=== PATIENT | male | born 1970 | race American Indian/Alaskan Native ===

== ENCOUNTER 2017-12-18 11:41 | Emergency (ER) | payer OTHER ==
[2017-12-18] MEDS ORDERED: VASELINE LIP THERAPY TP PRN (11:46)
[2017-12-18] MEDS ORDERED: ARTIFICIAL TEARS OPHTH OINT OU PRN (11:46)
[2017-12-18] MEDS ORDERED: ASPIRIN PO ONE (11:48)
[2017-12-18] MEDS ORDERED: HEPARIN 10,000 UNITS/10 ML IV ONE (11:51)
[2017-12-18] MEDS ORDERED: ASPIRIN PR ONE ×2 (11:59→12:11)
[2017-12-18 12:00] LABS: Hematocrit 45.9 % (35.5-45.6); Hemoglobin 15.1 gm/dl (11.8-15.2); Mean Corpuscular HGB Conc 33 % (32-34); Mean Corpuscular Hemoglobin 29 pg (28-32); Mean Corpuscular Volume 86 fl (84-94); Platelet Count 202 K/mm3 (140-440); Red Blood Count 5.31 M/mm3 (3.65-5.03); Red Cell Distribution Width 14.5 % (13.2-15.2)
[2017-12-18] MEDS ORDERED: NACL 0.9% 500 ML IV SCH (12:00)
[2017-12-18 12:12] LABS: INR 0.94 (0.87-1.13)
[2017-12-18 12:15] LABS: BUN/Creatinine Ratio 9; Blood Urea Nitrogen 13 mg/dL (9-20); Calcium 8.9 mg/dL (8.4-10.2); Hemolysis Index 26
--- NOTE | 2017-12-18 12:15 | Emergency Department Report ---
ED CPR HPI - General Chief Complaint: Cardiac Arrest/CPR Stated Complaint: CARDIAC ARREST Time Seen by Provider: 12/18/17 11:57 Source: EMS Mode of arrival: Stretcher Limitations: Other - History of Present Illness Initial Comments: This is a patient with little no known prior medical history resulting to this facility after cardiac arrest. The patient was out of service when he passed out. He was not observed to have any injury. He was assisted to the ground. Paramedics were notified. No bystander CPR was performed. Later I spoke to a [employer] member who stated that she was an EMT. She told me that the patient had fixed and dilated pupils when she responded to his syncopal episode at the [facility]. This information was not initially available to me. Pizza Delivery Driver report was that the patient had passed out and was found with a bradycardic rhythm and a pulse with some respirations. This degenerated into "PEA" and the patient was given 1 mg of epinephrine. He was intubated in the field. No further information was available at the time of the patient's initial presentation. MD Complaint: found unresponsive, collapsed during activity -: minute(s) Place: other ([facility]) Bystander CPR Performed: No Initial Findings in the Field: unresponsive, agonal ROSC in the Field: Yes (tachycardic with blood pressure on arrival) Associated Injuries: No (nothing apparent) Associated Symptoms: other (unknown) Treatments Prior to Arrival: intubation, epinephrine mgs # (1 mg) - Related Data Allergies Allergy/AdvReac Type Severity Reaction Status Date / Time Unable to Assess Allergy Unverified 12/18/17 11:46 ED Review of Systems ROS: Stated complaint: CARDIAC ARREST Other details as noted in HPI Comment: Unobtainable due to pts medical conditions ED Past Medical Hx - Past Medical History Additional medical history: unknown - Surgical History Additional Surgical History: known - Social History Smoking Status: Unknown if ever smoked Substance Use Type: Other Other Social History: Unknown ED Physical Exam - General Limitations: Other (GCS is 3. There are no spontaneous respirations) General appearance: obtunded - Head Head exam: Present: atraumatic - Eye Eye exam: Present: other (pupils are fixed and mid position) Pupils: Present: other (non-reactive to light) - ENT ENT exam: Present: normal exam - Neck Neck exam: Present: normal inspection. Absent: meningismus - Respiratory Respiratory exam: Present: normal lung sounds bilaterally (with Ambu bag assist) - Cardiovascular Cardiovascular Exam: Present: regular rate, normal rhythm. Absent: systolic murmur, diastolic murmur, rubs, gallop - GI/Abdominal GI/Abdominal exam: Present: soft, normal bowel sounds. Absent: distended, tenderness, guarding, rebound, rigid - Extremities Exam Extremities exam: Present: normal inspection - Neurological Exam Neurological exam: Present: other (GCS 3, nonresponsive to stimuli. No spontaneous respirations.) - Psychiatric Psychiatric exam: Present: other (not applicable) - Skin Skin exam: Present: warm, dry, intact, normal color. Absent: rash ED Course Vital Signs 12/18/17 12/18/17 12/18/17 11:42 11:45 11:46 Pulse Rate 115 H 101 H Respiratory 22 16 Rate Blood Pressure 149/98 O2 Sat by Pulse 98 100 100 Oximetry 12/18/17 12/18/17 12/18/17 11:56 12:00 12:05 Pulse Rate 92 H 95 H 95 H Respiratory 14 19 17 Rate Blood Pressure 163/107 159/107 O2 Sat by Pulse 99 98 98 Oximetry 12/18/17 12/18/17 12/18/17 12:10 12:29 12:30 Pulse Rate 96 H 95 H 95 H Respiratory 18 10 L 8 L Rate Blood Pressure 169/114 169/114 245/158 O2 Sat by Pulse 98 99 100 Oximetry 12/18/17 12/18/17 12/18/17 12:35 12:40 12:45 Pulse Rate 96 H 96 H 99 H Respiratory 16 16 16 Rate Blood Pressure 204/142 203/139 205/141 O2 Sat by Pulse 97 97 97 Oximetry 12/18/17 12/18/17 12/18/17 12:50 12:56 13:00 Pulse Rate 98 H 77 78 Respiratory 16 16 16 Rate Blood Pressure 197/137 197/137 134/99 O2 Sat by Pulse 98 98 98 Oximetry 12/18/17 12/18/17 12/18/17 13:05 13:10 13:15 Pulse Rate 79 79 82 Respiratory 16 16 16 Rate Blood Pressure 135/102 138/100 144/106 O2 Sat by Pulse 98 98 98 Oximetry 12/18/17 12/18/17 12/18/17 13:20 13:25 13:30 Pulse Rate 84 84 86 Respiratory 16 16 16 Rate Blood Pressure 152/112 147/101 138/91 O2 Sat by Pulse 99 97 98 Oximetry 12/18/17 12/18/17 13:35 13:40 Pulse Rate 85 75 Respiratory 15 13 Rate Blood Pressure 127/81 127/81 O2 Sat by Pulse 97 97 Oximetry - Reevaluation(s) Reevaluation #1: Patient had a 12-lead EKG performed shortly after his arrival. It was indicative of ST elevation [place] (anteroseptal ST elevation) with reciprocal change. As such the emergency vehicle technician aviation electronics technician Dr. Vanegas was notified and a STEMI code was initiated. Clinically the patient appeared to have significant possibly post anoxic rain injury. Dr. Vanegas have the patient CT scanned prior to cardiac catheterization. This showed a large pontine hemorrhage. Dr. Vanegas performed a bedside echocardiogram which demonstrated normal LV function. In addition, a repeat EKG showed normalization of the patient's ST segments and reciprocal changes. I spoke to the patient's family and extended temple members. It was explained to them that the patient had a very grim prognosis. They expressed understanding of the situation. Not withstanding this I spoke to the neurosurgeon at [facility] and the yarding engineer. They were very kind to accept this patient for further care and evaluation. The patient was transferred to [facility]. 12/18/17 19:41 12/18/17 19:46 ED Medical Decision Making - Lab Data Result diagrams: 12/18/17 11:41 12/18/17 11:41 - EKG Data -: EKG Interpreted by Ar EKG shows normal: sinus rhythm, axis, intervals Rate: normal - EKG Data Interpretation: other (ST elevation [place] anteroseptal distribution) - Radiology Data interpreted by me: Huge pontine hemorrhage on CT. Chest x-ray shows cardiomegaly without decompensation. Critical Care Time: Yes Critical care time in (mins) excluding proc time.: 60 Critical care attestation.: If time is entered above; I have spent that time in minutes in the direct care of this critically ill patient, excluding procedure time. ED Disposition Clinical Impression: Pontine hemorrhage Disposition: DC/TX-70 ANOTHER TYPE HLTHCARE Is pt being admited?: No Does the pt Need Aspirin: No Condition: Stable Referrals: DAVID GREGORIO MD [Primary Care Provider] - 3-5 Days Time of Disposition: 17:00
[2017-12-18] MEDS ORDERED: CALAN ONE (12:20)
[2017-12-18] MEDS ORDERED: HEPARIN 10,000 UNITS/10 ML ONE (12:20)
[2017-12-18] MEDS ORDERED: HEPARIN/NS 5000 UNIT/500ML(CATH LAB) 500 ML IR ONE (12:20)
[2017-12-18] MEDS ORDERED: XYLOCAINE 2% INFILTRATI ONE (12:21)
[2017-12-18] MEDS ORDERED: NACL 0.9% 500 ML 0 ML ONE (12:21)
[2017-12-18] MEDS ORDERED: NITROGLYCERIN SYRINGE 0 ML ONE (12:21)
[2017-12-18] MEDS ORDERED: NACL 0.9% IV ONE (12:36)
[2017-12-18] MEDS ORDERED: PROTAMINE SULFATE IV ONE (12:36)
[2017-12-18 12:38] LABS: Basophils # (Auto) 0.1 K/mm3 (0.0-0.1); Eosinophils # (Auto) 0.1 K/mm3 (0.0-0.4); Eosinophils % (Auto) 1.4 % (0.0-4.3); Monocytes # (Auto) 0.5 K/mm3 (0.0-0.8); Monocytes % (Auto) 5.4 % (0.0-7.3)
--- NOTE | 2017-12-18 12:42 | Cat Scan Report ---
CT HEAD WITHOUT CONTRAST: 12/18/17 12:15:00 CLINICAL: Headache and acute [place]. TECHNIQUE: 2.5-mm noncontrast scans. COMPARISON:None FINDINGS: A 2.5 x 2.5 cm irregular central pontine hemorrhage with blood extending into the third and fourth ventricles. Several smaller hemorrhages involve bilateral cerebral peduncles. Extra-axial hemorrhage surrounds the brainstem and the upper spinal cord. Mild enlargement of the frontal and occipital horns. No midline shift. No supratentorial hemorrhage outside of the ventricles. No suspicious hypodensity and no mass identified. IMPRESSION: Multifocal hemorrhages involving the irish and the cerebral peduncles with associated intraventricular hemorrhage and extra-axial hemorrhage at the level of the brainstem and upper spinal cord. Mild hydrocephalus. No midline shift. No suspicion of nonhemorrhagic infarct or mass. I discussed the findings with Dr. Vanegas at the time of the exam. ROMMEL VELASQUEZ
[2017-12-18 12:44] LABS: Anisocytosis 1+; Basophils % (Manual) 0 % (0.0-1.8); Total Cells Counted 100
[2017-12-18 12:45] LABS: Platelet Estimate Consistent w Auto
[2017-12-18] MEDS ORDERED: NORMODYNE IV ONE ×2 (12:53→12:56)
[2017-12-18 12:54] LABS: Albumin 4.1 g/dL (3.9-5); Calcium 8.9 mg/dL (8.4-10.2)
--- NOTE | 2017-12-18 12:58 | Consultation ---
History of Present Illness Consult date: 12/18/17 Requesting physician: HARDEEP HUSSEIN Consult reason: cardiac arrest History of present illness: This is a 47-year-old gentleman with obesity who was at [employer] today and collapsed patient was brought by EMS on the scene patient did receive ACLS protocol which CPR patient regained stronger blood pressure and pulse rate EKG shows acute anteroseptal IA with reciprocal ST depressions patient received heparin patient was nonresponsive as per bystanders was CPR was a short duration before intubation less than 5 minutes patient was being taken emergently to slab installer prior had a CAT scan of the head showed a large pontine bleed with no shift measuring 2.5 x 2.5 cm ventricles also. Repeat EKG shows LVH with diffuse depression but no more ST elevations bedside echocardiogram shows LV function with mild to moderate LVH with no significant regurgitations patient be transferred to [place] for further evaluation with neurosurgery heparin was reversed with protamine. Medical history as per family Past History Past Medical History: No medical history Past Surgical History: No surgical history Social history: no significant social history Family history: no significant family history Medications and Allergies Allergies Allergy/AdvReac Type Severity Reaction Status Date / Time Unable to Assess Allergy Unverified 12/18/17 11:46 Active Meds: Active Medications Hydrophilic Ointment (Vaseline Lip Therapy) 1 applic TP Q2HR PRN PRN Reason: Dry Lips Nicardipine HCl 50 mg/ Sodium (Chloride) 250 mls @ 25 mls/hr IV TITR ALEX; Protocol Multi-Ingred Cream/Lotion/Oil/Oint (Artificial Tears Ophth Oint) 1 applic OU Q4HR PRN PRN Reason: Dry Eye(s) Sodium Chloride (Nacl 0.9% 500 Ml) 1 ml IV DIRECT ALEX Review of Systems ROS unobtainable: due to mental status Physical Examination Vital Signs Pulse Resp Pulse Ox 115 H 22 98 12/18/17 11:42 12/18/17 11:42 12/18/17 11:42 General appearance: other HEENT: Positive: Other (nonreactive fixed pupils) Neck: Positive: neck supple Cardiac: Positive: Reg Rate and Rhythm Lungs: Positive: clear to auscultation Neuro: Positive: Other (nonresponsive) Abdomen: Positive: Soft Extremities: Absent: edema Results 12/18/17 11:41 12/18/17 11:41 Coagulation 12/18/17 Range/Units 11:41 PT 13.0 (12.2-14.9) Sec. INR 0.94 (0.87-1.13) CBC 12/18/17 Range/Units 11:41 WBC 8.6 (4.5-11.0) K/mm3 RBC 5.31 H (3.65-5.03) M/mm3 Hgb 15.1 (11.8-15.2) gm/dl Hct 45.9 H (35.5-45.6) % Plt Count 202 (140-440) K/mm3 [place] # 0.5 (0.0-0.8) K/mm3 Eos # 0.1 (0.0-0.4) K/mm3 Baso # 0.1 (0.0-0.1) K/mm3 Comprehensive Metabolic Panel 12/18/17 Range/Units 11:41 Sodium 137 (137-145) mmol/L Potassium 3.0 L (3.6-5.0) mmol/L Chloride 93.2 L (98-107) mmol/L Carbon Dioxide 20 L (22-30) mmol/L BUN 13 (9-20) mg/dL Creatinine 1.4 (0.8-1.5) mg/dL Glucose 285 H (75-100) mg/dL Calcium 8.9 (8.4-10.2) mg/dL - Imaging and Cardiology Echo: pending (normal LV function mild LVH no significant regurgitations) EKG interpretations - Telemetry EKG Rhythm: Sinus Rhythm (#[address] elevation anteroseptally reciprocal depression repeat EKG shows LVH with mild depression but resolution of ST elevation) Assessment and Plan Status post arrest Respiratory failure intubated Acute intracranial bleed Hypertension emergency Recommend transfer to [place] neurosurgery BP control with IV Cardene extremely poor prognosis discussed this with patient's sister and extended family in detail cardiac status
[2017-12-18] MEDS ORDERED: CARDENE 50 MG in NACL 0.9% 250ML 230 ML IV SCH (13:00)
[2017-12-18 13:48] VITALS: BP 127/81
--- NOTE | 2017-12-18 13:56 | XRay Report ---
AP CHEST :12/18/17 11:41:00 CLINICAL: Post intubation. COMPARISON:None. FINDINGS: An endotracheal tube is in satisfactory position. Large heart and central vascular congestion are likely related to underexpansion of the lungs. The lungs are relatively clear. No pneumothorax. IMPRESSION: Satisfactory position of the endotracheal tube.
[2017-12-18 14:02] LABS: Bacteria,Urine 2+ /HPF (Negative); Bilirubin,Urine NEG (Negative); Blood,Urine SM (Negative); Color,Urine Yellow (Yellow); Mucus,Urine FEW /HPF; Urobilinogen,Urine < 2.0 mg/dL (<2.0)
[2017-12-18 14:09] LABS: Protein,Urine >500 mg/dL (Negative)
== END 2017-12-18 14:15 | disposition other institution (70) ==
LOC: ED 11:41
DX: I61.3 Nontraumatic intracerebral hemorrhage in brain stem (principal); I46.9 Cardiac arrest, cause unspecified
CPT/HCPCS: 36415; 70450; 71045; 80048; 80053; 81001; 82140; 82805; 83880; 84484; 85007; 85025; 85610; 86850; 86900; 86901; 87040; 87086; 93005; 93010; 93306; 96365; 96375; 99291; J1644; J2720; J7050; 94002; J7040